=== PATIENT | male | born 1960 | race Caucasian/White ===

== ENCOUNTER 2018-08-08 22:16 | Emergency (ER) | payer OTHER ==
[~2018-08-08] VITALS: Ht 182.9 cm; Wt 78.0 kg
[2018-08-08 22:22] VITALS: BP 180/105
== END 2018-08-08 23:16 | disposition home or self-care (01) ==
LOC: ER 22:17
DX: S01.412A Laceration without foreign body of left cheek and temporomandibular area, initial encounter (principal); Y04.8XXA Assault by other bodily force, initial encounter; Y93.89 Activity, other specified; Y92.89 Other specified places as the place of occurrence of the external cause; Y99.8 Other external cause status
CPT/HCPCS: 12013; 99283

== ENCOUNTER 2025-05-26 13:51 | Emergency (ER) | payer SELFPAY ==
[~2025-05-26] VITALS: Ht 182.9 cm; Wt 81.8 kg
[2025-05-26 13:54] VITALS: BP 176/89; PULSE 68; RESP 16; TEMP 98.2; O2SAT 96
--- NOTE | 2025-05-26 14:01 | Physician Documentation ---
History of Present Illness ~ Chief Complaint: Laceration Stated Complaint: FINGER LAC Time Seen by MD: 14:05 HPI This is a 65-year-old male who presents after crashing injury to the left pinky finger. He notes this was a scene when moving the cement statue. His finger go t crushed between the cement statue and the table it was being placed on. Unsure when last tetanus was. Tetanus Within 5 Years: No Medication Reconciliation Allergies: Coded Allergies: No Known Allergies (Unverified , 05/26/25) Scheduled Cephalexin*Monohydrate* (Keflex*), 1 CAP PO QID Past Medical History Past Medical History: No Pertinent History Past Surgical History: no surgical history Drug Use: none Lives In: Home Review of Systems ROS As stated above in the HPI, otherwise all systems are reviewed and negative. Physical Exam Vital Signs: Temperature: 98.2, Source: Temporal, Heart Rate: 68, Respiratory Rate: 16, BP: 176/89, Pulse Oximetry: 96, Weight: 81.820 Oxygen Flow Rate: 0 Physical Exam General: Alert, no apparent distress. HEENT: PERRL, EOMI, no injection, moist mucous membranes. Neck: Full range of motion. Respiratory: Lungs clear, no respiratory distress. Chest: No accessory muscle use. Cardiovascular: Regular rate and rhythm, no murmurs. Gastrointestinal: Soft, nontender, nondistended. Bowels sounds present. Extremities: Normal range of motion, no deformity. Neurologic: Oriented x4. Psychiatric: Normal mood and affect. Skin: Normal color, warm and dry. No edema, no ecchymosis. Laceration palm side left fifth digit measuring approx 2 cm. Procedures Laceration/Wound Repair Laceration : Anesthesia: Lidocaine Suture Size/Type: 4-0 Number of Superficial Sutures: 10 Dressing Applied: simple Tolerated Procedure Well?: yes, no complications Progress Results/Orders Results/Orders Orders - LEONIDES PRECIADO NP Laceration/I&D Tray Set Up (05/26/25 ) Completed Orders - LEONIDES PRECIADO HIDE CLEANER Lidocaine 1% 30ml Vial (Xylocaine 1% Via (05/26/25 14:14) Vital Signs 05/26/25 13:54 Temp 98.2 Pulse 68 Resp 16 B/P (MAP) 176/89 Pulse Ox 96 O2 Flow Rate 0 Medical Decision Making Findings Patient's laceration on his right 5th digit was revised without difficulty. Patient declined getting a tetanus shot. Based on where the the laceration is at and his lifestyle I am going to place him on oral antibiotics to prevent further infection or exacerbation X-ray is notable fornon displaced oblique fracture at the tip of the 5th distal phalanx Differential Dx:Considerations: Include: Abrasion, Avulsion, Contusion, Laceration, Fracture, Hematoma, Neurovascular injury, Retained foreign body Departure Disposition: HOME / SELF CARE / HOMELESS Impression: Primary Impression: Laceration Condition: Stable Discharge Instructions: Laceration Care, Adult, [id number] Additional Instructions: Sutures can come out in 7-10 days Referrals: NO PRIMARY CARE PROVIDER (PCP) Prescriptions Cephalexin*Monohydrate* (Keflex*) 500 Mg Capsule 1 CAP PO QID, #40 CAP Prov: LEONIDES PRECIADO NP 05/26/25 Signature Scribe Signature: x Attestation: The note accurately reflects work and decisions made by me.Luci Ness NP 05/26/25 14:01 LUCI STEVENS NP May 26, 2025 14:01 LEONIDES PRECIADO NP May 26, 2025 15:10
--- NOTE | 2025-05-26 14:42 | RADIOLOGY REPORT ---
CLINICAL INDICATION: crush injury with pain. TECHNIQUE: FINGERSDI FINGER(S), left Comparison: None FINDINGS/IMPRESSION: : Suspect a non displaced oblique fracture at the tip of the 5th distal phalanx. Alignment is anatomic.
[2025-05-26] MEDS: LIDOcaine 1% 30ml preserv. free vial SQ STA (14:47)
[2025-05-26] MEDS ORDERED: CEPH-585 PO (15:10)
== END 2025-05-26 15:56 | disposition home or self-care (01) ==
LOC: ER 13:52
DX: S61.217A Laceration without foreign body of left little finger without damage to nail, initial encounter (principal); W23.0XXA Caught, crushed, jammed, or pinched between moving objects, initial encounter; Y93.89 Activity, other specified; Y92.89 Other specified places as the place of occurrence of the external cause; Y99.8 Other external cause status
CPT/HCPCS: 12001; 73140; 99283; A6449

== ENCOUNTER 2025-06-04 14:20 | Emergency (ER) | payer SELFPAY ==
[~2025-06-04] VITALS: Ht 182.9 cm; Wt 78.5 kg
[~2025-06-04 14:20] MED LIST: CEPH-585 PO
[2025-06-04 14:26] VITALS: BP 139/72; PULSE 82; RESP 16; TEMP 98.5; O2SAT 94
--- NOTE | 2025-06-04 14:59 | Physician Documentation ---
History of Present Illness ~ Chief Complaint: Suture Removal Stated Complaint: SUTURE REMOVAL Time Seen by MD: 14:44 HPI Patient is a 65-year-old male that presents to the emergency department for a wound re-evaluation and suture removal. Patient reports he has had no compl ications with the sutures and they appear appropriate at this time. Sutures have been in for 9 days as of today. Patient reports no other symptoms at this time. Tetanus Within 5 Years: No Medication Reconciliation Allergies: Coded Allergies: No Known Allergies (Unverified , 05/26/25) Scheduled Cephalexin*Monohydrate* (Keflex*), 1 CAP PO QID Past Medical History Past Medical History: No Pertinent History Past Surgical History: no surgical history Drug Use: none Lives In: Home Review of Systems ROS As stated above in the HPI, otherwise all systems are reviewed and negative. Physical Exam Vital Signs: Temperature: 98.5, Source: Temporal, Heart Rate: 82, Respiratory Rate: 16, BP: 139/72, Pulse Oximetry: 94, Weight: 78.500 Oxygen Flow Rate: 0 Physical Exam VITALS: Reviewed and as above. GENERAL: Alert, no apparent distress. SKIN: Warm and dry, no rash, sutures visible to the index finger sutures appear appropriate that at this time no erythema no swelling no abnormal drainage. NEURO: Oriented x4, No motor or sensory deficit PSYCH: Normal mood and affect, no agitation Progress Results/Orders Results/Orders Vital Signs 06/04/25 14:26 Temp 98.5 Pulse 82 Resp 16 B/P (MAP) 139/72 Pulse Ox 94 O2 Flow Rate 0 Medical Decision Making Additional information obtaine: other Findings Patient is a 65-year-old male that presents to the emergency department for a wound re-evaluation and suture removal. Patient reports he has had no complications with the sutures and they appear appropriate at this time. Sutures have been in for 9 days as of today. Patient reports no other symptoms at this time. Salmeron removed without complication. Sutures were removed by triage nursing staff. Dressing placed aftercare instructions provided to the patient. Patient will follow up with his primary care provider if he has any additional concerns. Patient will return to the emergency department if he develops any symptoms that we discussed here today. Differential Dx:Considerations: Include: Cellulitis, Suture removal, Wound dehiscence, Other Departure Disposition: 01 HOME / SELF CARE Impression: Primary Impression: Wound Additional Impression: Visit for suture removal Condition: Stable Discharge Instructions: Suture Removal, Care After Additional Instructions: Patient is a 65-year-old male that presents to the emergency department for a wound re-evaluation and suture removal. Patient reports he has had no complications with the sutures and they appear appropriate at this time. Sutures have been in for 9 days as of today. Patient reports no other symptoms at this time. Salmeron removed without complication. Sutures were removed by triage nursing staff. Dressing placed aftercare instructions provided to the patient. Patient will follow up with his primary care provider if he has any additional concerns. Patient will return to the emergency department if he develops any symptoms that we discussed here today. Referrals: NO PRIMARY CARE PROVIDER (PCP) Education Educated: Patient Educated regarding: diagnosis, treatment, need for follow up Signature Scribe Signature: A Attestation: Scribed for Paige Butler by REGULO Logan . 06/04/25 14:58 PAIGE BUTLER Jun 04, 2025 14:58
== END 2025-06-04 14:45 | disposition home or self-care (01) ==
LOC: ER 14:20
DX: S61.218D Laceration without foreign body of other finger without damage to nail, subsequent encounter (principal); X58.XXXD Exposure to other specified factors, subsequent encounter
CPT/HCPCS: 99282